=== PATIENT | female | born 1990 ===

== ENCOUNTER 2025-02-19 05:09 | Day surgery (SDC) | payer OTHER ==
[2025-02-19] MEDS ORDERED: Propofol 200 MG/20 ML SDV IV ONE (05:10)
[2025-02-19] MEDS ORDERED: Propofol 200 MG/20 ML SDV ONE ×2 (05:51→09:59)
[2025-02-19] MEDS: Lactated Ringers 1,000 ML IV SCH (06:20)
== END 2025-02-19 08:00 | disposition home or self-care (01) ==
LOC: DL.ENDO 05:09 → EDBD 06:30 → DL.ENDO 08:00
PROVIDERS: ATTEND Internal Medicine Gastroenterology
DX: K51.211 Ulcerative (chronic) proctitis with rectal bleeding (principal); E66.09 Other obesity due to excess calories; R79.89 Other specified abnormal findings of blood chemistry; C43.9 Malignant melanoma of skin, unspecified; Z88.8 Allergy status to other drugs, medicaments and biological substances; Z68.36 Body mass index [BMI] 36.0-36.9, adult
CPT/HCPCS: 45380; 81025; J2704; J7120; 00811